=== PATIENT | female | born 1985 | race African-American/Black ===

== ENCOUNTER 2019-02-25 14:19 | Emergency (ER) | payer BC, OTHER ==
[~2019-02-25] VITALS: Ht 157.5 cm; Wt 99.8 kg
[2019-02-25] MEDS ORDERED: OSELB75 PO (15:52)
[2019-02-25 17:11] VITALS: BP 132/71
== END 2019-02-25 16:43 | disposition home or self-care (01) ==
LOC: ER 14:19
DX: J10.1 Influenza due to other identified influenza virus with other respiratory manifestations (principal)